=== PATIENT | female | born 1995 | race Caucasian/White ===

== ENCOUNTER 2020-06-20 10:45 | Inpatient (IN) | payer MEDICAID ==
[~2020-06-20] VITALS: Ht 177.8 cm; Wt 138.1 kg
[2020-06-20] MEDS ORDERED: CEFOTETAN PMX 1GM/50ML 50 ML IVPB ONE (11:00)
--- NOTE | 2020-06-20 11:04 | NUR ---
PT WENT TO ER IN [place] LAST NIGHT FOR ABD PAIN. CT SCAN SHOWED SHE HAD CHOLECYSTITS. PT CO OF RUQ ABD PAIN. PT BIB EMS FOR POTENTIAL SURGERY. PT RECEIVED 1MG DILAUDID ANIMAL STUNNER. PT REPORTS PAIN IS CONTROLLED AT THE MOMENT. PT IS RESTING IN GURNEY. ACCOMPANIED BY .
[2020-06-20 11:15] LABS: BASOPHILS % (AUTO) 0 % (0-1); EOSINOPHILS % (AUTO) 0 % (1-7); LYMPHOCYTES % (AUTO) 19 % (22-44); MEAN CORPUSCULAR HEMOGLOBIN 27.6 pg (27.0-34.8); MEAN CORPUSCULAR HGB CONC 32.8 g/dL (32.4-35.8); MEAN PLATELET VOLUME 8.1 fL (7.4-10.4); MONOCYTES % (AUTO) 9 % (2-9); NEUTROPHILS % (AUTO) 71 % (42-75); PLATELET COUNT 326 x10^3/uL (130-400); RED BLOOD COUNT 4.44 x10^6/uL (3.82-5.3); RED CELL DISTRIBUTION WIDTH 13.8 % (9.6-15.2)
[2020-06-20 11:27] LABS: ALANINE AMINOTRANSFERASE 634 U/L (12-78); ALBUMIN 3.3 g/dL (3.4-5.0); ANION GAP 8 mmol/L (5-15); CALCIUM 8.7 mg/dL (8.5-10.1); CHLORIDE 106 mmol/L (98-107); CREATININE 0.76 mg/dL (0.55-1.02)
[2020-06-20 11:29] LABS: ALKALINE PHOSPHATASE 141 U/L (45-117); TOTAL PROTEIN 7.4 g/dL (6.4-8.2)
[2020-06-20 11:30] LABS: MD NO
[2020-06-20] MEDS ORDERED: PLEASE ENTER ALLERGIES MC SCH (11:30)
[2020-06-20] MEDS ORDERED: SODIUM CHLORIDE FLUSH 10ML SYR IVF PRN (11:30)
[2020-06-20 13:56] VITALS: BP 112/73
[2020-06-20] MEDS ORDERED: PROMETHAZINE 25 MG/ML, 1ML IM PRN (14:00)
[2020-06-20] MEDS ORDERED: ACETAMINOPHEN 325 MG TABLET PO PRN (14:00)
[2020-06-20] MEDS: ENOXAPARIN 40 MG/0.4 ML SQ SCH (14:00)
[2020-06-20] MEDS ORDERED: HYDROcodone/APAP 5/325 TABLET PO PRN (14:00)
[2020-06-20] MEDS: SODIUM CHLORIDE 0.9% 1,000 ML IV SCH ×2 (14:17→19:43)
[2020-06-20] MEDS: ONDANSETRON 2MG/ML, 2ML IVPush PRN (14:17)
[2020-06-20] MEDS: CEFTRIAXONE PMX 1GM/50ML 50 ML IV SCH (14:17)
[2020-06-20] MEDS: morphine SULFATE 10 MG/ML, 1ML IVPush PRN ×3 (14:17→20:36)
[2020-06-20 14:21] LABS: INTERNATIONAL NORMALIZED RATIO 1.01 (0.93-1.1); PROTHROMBIN TIME 10.4 Seconds (9.6-11.5)
[2020-06-20 20:41] VITALS: BP 110/63
[2020-06-21] MEDS: SODIUM CHLORIDE 0.9% 1,000 ML IV SCH ×3 (00:32→13:09)
[2020-06-21] MEDS: morphine SULFATE 10 MG/ML, 1ML IVPush PRN ×2 (00:41→08:15)
[2020-06-21 02:55] VITALS: BP 100/53
[2020-06-21 05:22] LABS: CHLORIDE 108 mmol/L (98-107)
[2020-06-21 05:36] LABS: BASOPHILS % (AUTO) 0 % (0-1); EOSINOPHILS % (AUTO) 1 % (1-7); LYMPHOCYTES % (AUTO) 23 % (22-44); MEAN CORPUSCULAR HEMOGLOBIN 27.4 pg (27.0-34.8); MEAN CORPUSCULAR HGB CONC 32.2 g/dL (32.4-35.8); MEAN PLATELET VOLUME 8.5 fL (7.4-10.4); MONOCYTES % (AUTO) 8 % (2-9); NEUTROPHILS % (AUTO) 68 % (42-75); PLATELET COUNT 251 x10^3/uL (130-400); RED BLOOD COUNT 4.22 x10^6/uL (3.82-5.3); RED CELL DISTRIBUTION WIDTH 13.8 % (9.6-15.2)
[2020-06-21 05:40] LABS: MD NO
[2020-06-21 05:41] LABS: ALANINE AMINOTRANSFERASE 418 U/L (12-78); ALKALINE PHOSPHATASE 116 U/L (45-117); ANION GAP 5 mmol/L (5-15); BILIRUBIN,TOTAL 0.5 mg/dL (0.2-1.0); CALCIUM 8.2 mg/dL (8.5-10.1); CREATININE 0.65 mg/dL (0.55-1.02); TOTAL PROTEIN 6.9 g/dL (6.4-8.2)
[2020-06-21 07:17] VITALS: BP 101/68
[2020-06-21] MEDS ORDERED: CHLORHEXIDINE 15 ML UDC MM STA (09:38)
[2020-06-21] MEDS ORDERED: FENTANYL PF 250 MCG/5ML ONE (10:09)
[2020-06-21] MEDS ORDERED: MIDAZOLAM 1 MG/ML, 2ML ONE (10:09)
[2020-06-21] MEDS ORDERED: ROCURONIUM 10 MG/ML,10ML ONE (11:11)
[2020-06-21] MEDS ORDERED: SUGAMMADEX 200 MG/2 ML IVPush ONE (11:11)
[2020-06-21] MEDS ORDERED: ONDANSETRON 2MG/ML, 2ML ONE (11:11)
[2020-06-21] MEDS ORDERED: SUCCINYLCHOLINE 20 MG/ML, 10ML ONE (11:11)
[2020-06-21] MEDS ORDERED: DEXAMETHASONE 4 MG/ML, 1ML ONE (11:11)
[2020-06-21] MEDS ORDERED: CEFAZOLIN 1,000 MG ONE (11:11)
[2020-06-21] MEDS ORDERED: BUPIVACAINE/PF 0.5% ONE (11:22)
[2020-06-21] MEDS ORDERED: EPINEPHRINE 1 MG/ML, 1ML ONE (11:22)
[2020-06-21] MEDS ORDERED: KETOROLAC 30 MG/1 ML IV PRN (12:00)
[2020-06-21] MEDS ORDERED: ONDANSETRON 2MG/ML, 2ML IVPush PRN (12:00)
[2020-06-21] MEDS ORDERED: MEPERIDINE/PF 25MG/0.5ML IVPush PRN (12:00)
[2020-06-21] MEDS ORDERED: METOCLOPRAMIDE 5 MG/ML, 2ML IV PRN (12:00)
[2020-06-21] MEDS ORDERED: DIAZEPAM 5 MG/ML, 2ML IV PRN ×2 (12:00)
[2020-06-21] MEDS ORDERED: LABETALOL 5MG/ML, 20ML IV PRN (12:00)
[2020-06-21] MEDS ORDERED: PROMETHAZINE 25 MG/ML, 1ML IV PRN (12:00)
[2020-06-21] MEDS ORDERED: hydrALAzine 20 MG/ML, 1ML IV PRN (12:00)
[2020-06-21] MEDS ORDERED: ALBUTEROL SULFATE 2.5 MG/3 ML NPPB PRN (12:00)
[2020-06-21] MEDS ORDERED: HYDROmorphone 1 MG/ML, 1ML INJ IV PRN (12:00)
[2020-06-21] MEDS ORDERED: FENTANYL PF 100 MCG/2ML IV PRN (12:00)
[2020-06-21] MEDS ORDERED: OXYcodone 5 MG/5 ML ORAL.SOL UDC PO PRN (12:00)
[2020-06-21] MEDS ORDERED: KETOROLAC 30 MG/1 ML ONE (12:33)
[2020-06-21 13:02] VITALS: BP 113/75
[2020-06-21] MEDS: CEFTRIAXONE PMX 1GM/50ML 50 ML IV SCH (13:09)
[2020-06-21] MEDS ORDERED: POTASSIUM CHLORIDE 20 MEQ TAB.ER.PRT PO ONE (14:30)
[2020-06-21] MEDS: ENOXAPARIN 40 MG/0.4 ML SQ SCH (15:29)
[2020-06-21 20:27] VITALS: BP 126/88
[2020-06-22 00:24] VITALS: BP 114/69
[2020-06-22] MEDS: morphine SULFATE 10 MG/ML, 1ML IVPush PRN (01:37)
[2020-06-22] MEDS: ONDANSETRON 2MG/ML, 2ML IVPush PRN (01:38)
[2020-06-22 05:20] LABS: BASOPHILS % (AUTO) 0 % (0-1); EOSINOPHILS % (AUTO) 1 % (1-7); LYMPHOCYTES % (AUTO) 26 % (22-44); MEAN CORPUSCULAR HEMOGLOBIN 28.1 pg (27.0-34.8); MEAN CORPUSCULAR HGB CONC 33.1 g/dL (32.4-35.8); MEAN PLATELET VOLUME 8.2 fL (7.4-10.4); MONOCYTES % (AUTO) 8 % (2-9); NEUTROPHILS % (AUTO) 65 % (42-75); PLATELET COUNT 241 x10^3/uL (130-400); RED BLOOD COUNT 3.65 x10^6/uL (3.82-5.3); RED CELL DISTRIBUTION WIDTH 13.6 % (9.6-15.2)
[2020-06-22 05:23] LABS: CHLORIDE 108 mmol/L (98-107)
[2020-06-22 05:26] LABS: MD NO
[2020-06-22 05:30] LABS: ALANINE AMINOTRANSFERASE 233 U/L (12-78); ALBUMIN 2.6 g/dL (3.4-5.0); ALKALINE PHOSPHATASE 99 U/L (45-117); ANION GAP 4 mmol/L (5-15); BILIRUBIN,TOTAL 0.7 mg/dL (0.2-1.0); CALCIUM 8.2 mg/dL (8.5-10.1); TOTAL PROTEIN 6.2 g/dL (6.4-8.2)
[2020-06-22 06:47] VITALS: BP 108/71
[2020-06-22] MEDS: POTASSIUM CHLORIDE 20 MEQ TAB.ER.PRT PO SCH ×2 (08:03→17:26)
[2020-06-22] MEDS ORDERED: morphine SULFATE 10 MG/ML, 1ML IVPush PRN (11:00)
[2020-06-22 12:47] VITALS: BP 128/84
[2020-06-22] MEDS ORDERED: SODIUM CHLORIDE 0.9% 1,000 ML IV SCH (14:00)
[2020-06-22] MEDS: ENOXAPARIN 40 MG/0.4 ML SQ SCH (14:17)
[2020-06-22] MEDS: SODIUM CHLORIDE 0.9% 1,000 ML IV SCH (17:30)
[2020-06-22 19:07] VITALS: BP 110/74
[2020-06-23 00:41] VITALS: BP 136/84
[2020-06-23] MEDS: SODIUM CHLORIDE 0.9% 1,000 ML IV SCH ×2 (02:00→09:15)
[2020-06-23 04:42] LABS: BASOPHILS % (AUTO) 1 % (0-1); EOSINOPHILS % (AUTO) 1 % (1-7); LYMPHOCYTES % (AUTO) 32 % (22-44); MEAN CORPUSCULAR HEMOGLOBIN 27.3 pg (27.0-34.8); MEAN CORPUSCULAR HGB CONC 32.3 g/dL (32.4-35.8); MEAN PLATELET VOLUME 8.1 fL (7.4-10.4); MONOCYTES % (AUTO) 7 % (2-9); NEUTROPHILS % (AUTO) 59 % (42-75); PLATELET COUNT 313 x10^3/uL (130-400); RED BLOOD COUNT 4.08 x10^6/uL (3.82-5.3); RED CELL DISTRIBUTION WIDTH 13.8 % (9.6-15.2)
[2020-06-23 04:51] LABS: CHLORIDE 108 mmol/L (98-107)
[2020-06-23 04:55] LABS: MD NO
[2020-06-23 04:58] LABS: ALANINE AMINOTRANSFERASE 178 U/L (12-78); ALKALINE PHOSPHATASE 88 U/L (45-117); ANION GAP 6 mmol/L (5-15); BILIRUBIN,TOTAL 0.5 mg/dL (0.2-1.0); CALCIUM 8.9 mg/dL (8.5-10.1); CREATININE 0.71 mg/dL (0.55-1.02); TOTAL PROTEIN 7.2 g/dL (6.4-8.2)
[2020-06-23] MEDS ORDERED: POTASSIUM CHLORIDE 20 MEQ TAB.ER.PRT PO ONE (06:30)
[2020-06-23 07:52] VITALS: BP 120/81
[2020-06-23] MEDS ORDERED: ACET325T14 PO (09:29)
== END 2020-06-23 12:45 | disposition home or self-care (01) | DRG 417 ==
LOC: ED 11:19 → 3N 12:23 → DCLOUNGE 06-23 12:39
PROVIDERS: ADMIT Hospitalist; ATTEND Hospitalist
PROC: 0FT44ZZ Resection of Gallbladder, Percutaneous Endoscopic Approach (ICD-10-PCS; principal; 2020-06-21 11:30)
DX: K80.00 Calculus of gallbladder with acute cholecystitis without obstruction (principal); K85.10 Biliary acute pancreatitis without necrosis or infection; Z68.41 Body mass index [BMI] 40.0-44.9, adult; Z20.828 Contact with and (suspected) exposure to other viral communicable diseases; E66.01 Morbid (severe) obesity due to excess calories; E87.6 Hypokalemia; Z87.11 Personal history of peptic ulcer disease; R73.9 Hyperglycemia, unspecified
CPT/HCPCS: 36415; 96365; 96375; 96376; 99285; S0020; 74181; 80053; 83690; 83735; 84100; 84443; 85025; 85610; 87635; 88304; G0378; J0171; J0690; J0696; J1100; J1650; J1885; J2250; J2405; J3010; J0330; J2270; J7030